=== PATIENT | male | born 1960 | race Asian ===

== ENCOUNTER 2024-04-12 05:55 | Emergency (ER) | payer OTHER ==
[2024-04-12 06:08] VITALS: O2SAT 99
--- NOTE | 2024-04-12 06:27 | ED Physician Documentation ---
PD HPI BACK PAIN - Stated complaint Stated Complaint: LOWER BACK/LT LEG PX - Chief complaint Chief Complaint: Back Pain - History obtained from History obtained from: Patient - Additional information Additional information: Patient is a 63-year-old male with a history of hyperlipidemia presenting for evaluation of left lower lumbar pain that has been present for 3 days. Patient states that his has cancer and recently had spine surgery at [facility] and since then has been a paraplegic. She did go to rehab but has been home now for 2 to 3 weeks and has not yet regained mobility in her legs so he has been lifting and transferring her on his own. They do have home PT that comes a few times a week.He states that he has been lifting his and 3 days ago the lower back started to hurt and has continued to hurt. This morning they were supposed to go down to an immunotherapy appointment at [facility] but he was unable To lift her without pain in the back to get her into the car. He has not tried anything yet for pain. Denies fever. No chest pain, shortness of air, abdominal pain, vomiting, numbness in the groin, bowel or bladder incontinence. Review of Systems Constitutional: denies: Fever Cardiac: denies: Chest pain / pressure Respiratory: denies: Dyspnea GI: denies: Abdominal Pain, Vomiting : denies: Dysuria, Incontinent, Hematuria Musculoskeletal: reports: Back pain PD PAST MEDICAL HISTORY - Past Medical History Past Medical History: Yes Cardiovascular: Hypertension, High cholesterol - Present Medications Home Medications: Ambulatory Orders Medication Instructions Recorded Confirmed Cyclobenzaprine [Flexeril] 10 mg PO TID PRN #20 tablet 04/12/24 Lidocaine Patch 5% [Lidoderm Patch] 1 patch TOP DAILY PRN #10 patch 04/12/24 - Allergies Allergies/Adverse Reactions: Allergies Allergy/AdvReac Type Severity Reaction Status Date / Time No Known Drug Allergies Allergy Verified 04/12/24 06:07 - Social History Does the pt smoke?: Yes Smoking Status: Current every day smoker PD ED PE NORMAL - General General: Alert and oriented X 3, No acute distress, Well developed/nourished - HEENT HEENT: Atraumatic, Moist mucous membranes, Pharynx benign - Neck Neck: Supple, no meningeal sign - Cardiac Cardiac: RRR, Strong equal pulses - Respiratory Respiratory: No respiratory distress, Clear bilaterally - Abdomen Abdomen: Normal bowel sounds, Soft, Non tender, Non distended - Back Back: No CVA TTP, No spinal TTP, Other (Left lower lumbar tenderness) - Derm Derm: Warm and dry - Extremities Extremities: No deformity - Neuro Neuro: Alert and oriented X 3, No motor deficit, No sensory deficit, Normal speech Results - Vitals Vitals: Vital Signs - 24 hr 04/12/24 04/12/24 06:02 06:47 Temperature 36.8 C Heart Rate 60 66 Respiratory 16 18 Rate Blood Pressure 131/78 H 130/70 O2 Saturation 99 99 Oxygen O2 Source Room air PD Medical Decision Making - ED course ED course: Patient is a 63-year-old male presenting for evaluation of left lower lumbar pain in the setting of lifting and transferring his who has recently become immobile. No red flag signs or symptoms in regards to his back pain. Patient was able to drive himself and ambulate into the emergency department today. Pulses in lower extremities intact. No midline tenderness. Will start patient on anti-inflammatories, lidocaine patch and muscle relaxers. Patient understands importance of close follow-up as well as limiting activities that may exacerbate his back pain. He also understands the importance of reaching out to 's physicians in order to try and get some more help at home for them. Patient aware of concerning symptoms to return for. Departure - Departure Disposition: 01 Home, Self Care Clinical Impression: Lumbar strain Condition: Stable Instructions: ED Sprain Strain Lumbar Prescriptions: Cyclobenzaprine [Flexeril] 10 mg PO TID PRN #20 tablet PRN Reason: Spasms Lidocaine Patch 5% [Lidoderm Patch] 1 patch TOP DAILY PRN #10 patch PRN Reason: pain Comments: Your prescriptions were sent to [facility] in [place]. This includes a muscle relaxer called cyclobenzaprine (Flexeril) and lidocaine patches. You should also use an anti-inflammatory such as acetaminophen or ibuprofen. You do also need to be careful with activities Where you are twisting, bending or lifting. It sounds that you and your need more assistance at home Given her current difficulties with mobility. I would encourage you to reach out to her oncologist or primary care today to just discuss this In order to get more help at home. Please return to the emergency department with any worsening symptoms such as weakness, numbness in the groin, trouble controlling your bladder function. Discharge Date/Time: 04/12/24 06:49
[2024-04-12] MEDS: LIDOCAINE PATCH 5% TOP STA (06:38)
[2024-04-12] MEDS: CYCLOBENZAPRINE 10 MG Prepack 2 PO PRN (06:38)
[2024-04-12] MEDS: ACETAMINOPHEN 500 MG TABLET PO STA (06:38)
[2024-04-12 07:00] VITALS: BP 130/70
== END 2024-04-12 06:49 | disposition home or self-care (01) ==
LOC: ED 05:55
DX: S39.012A Strain of muscle, fascia and tendon of lower back, initial encounter (principal); X50.0XXA Overexertion from strenuous movement or load, initial encounter; Y93.F2 Activity, caregiving, lifting; E78.5 Hyperlipidemia, unspecified; I10 Essential (primary) hypertension; F17.200 Nicotine dependence, unspecified, uncomplicated
CPT/HCPCS: 99283; A9270